=== PATIENT | male | born 1970 | race Caucasian/White ===

== ENCOUNTER 2021-12-21 21:18 | Emergency (ER) | payer SELFPAY ==
[~2021-12-21] VITALS: Ht 190.5 cm; Wt 59.1 kg
[2021-12-21 21:27] VITALS: BP 171/136
== END 2021-12-21 22:48 | disposition left against medical advice (07) ==
LOC: EMS 21:21
DX: F10.129 Alcohol abuse with intoxication, unspecified (principal); Y90.9 Presence of alcohol in blood, level not specified
CPT/HCPCS: 99283; Z7502